=== PATIENT | male | born 1995 | race African-American/Black ===

== ENCOUNTER 2019-01-17 14:36 | Emergency (ER) | payer MEDICAID ==
[~2019-01-17] VITALS: Ht 185.4 cm; Wt 90.7 kg
[2019-01-17 17:00] VITALS: BP 140/70
[2019-01-17] MEDS ORDERED: KETOROLAC TROMETH 60MG/2ML VIAL IM ONE (17:00)
[2019-01-17] MEDS ORDERED: IBUPROFEN 800 MG TAB PO ONE (17:15)
== END 2019-01-17 17:22 | disposition home or self-care (01) ==
LOC: ER 14:36
DX: S76.011A Strain of muscle, fascia and tendon of right hip, initial encounter (principal); X58.XXXA Exposure to other specified factors, initial encounter; Y93.89 Activity, other specified; Y92.89 Other specified places as the place of occurrence of the external cause; Y99.8 Other external cause status
CPT/HCPCS: 99282; J1885